=== PATIENT | male | born 1950 | race Caucasian/White ===

== ENCOUNTER 2020-06-25 07:00 | Day surgery (SDC) | payer OTHER ==
[~2020-06-25] VITALS: Ht 172.7 cm; Wt 74.8 kg
[~2020-06-25 07:00] MED LIST: ASPIRIN EC81 M1 PO; EZETIMIBE10 MG PO; HYDROXYCHLOROQ200 M1 PO; MULTIVITAMIN PACKET PO; OMEGA 3-6-9 11200 M1 PO; ZOCOR 10 MG TAB10 M1 PO
[2020-06-25 08:16] VITALS: BP 110/58
--- NOTE | 2020-06-29 06:05 | O ---
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 PROCEDURE: Left transconjunctival orbitotomy. SURGEON: Benjie Sanchez MD [employer] OPERATIONS: None. ANESTHESIA: General. COMPLICATIONS: None. INDICATIONS FOR SURGERY: This pleasant 69-year-old gentleman has a mass in his superior temporal orbit presenting sufficiently in size to induce a mechanical ectropion of his upper lid. This causes him to have chronic tearing and discharge from the eye in addition to irritation. He presents today for debulking of this lesion, which is presumed to be benign with correction of his lid globe anatomy to a normal position. Informed consent was obtained to include but not limited to the potential risk for loss of vision, bleeding, infection, and the potential need for further surgery or treatment. DESCRIPTION OF PROCEDURE: The patient was taken to the operating room where general anesthesia was administered. The left orbit was then anesthetized with Xylocaine with epinephrine mixed with Marcaine and Wydase. An additional seventh nerve block was then administered laterally. The patient was then subsequently prepped and draped in the usual sterile fashion, placing a moist sponge subsequently on the right eye. The left upper lid was distracted, which exposed the superior temporal quadrant of the globe. The conjunctiva was then elevated and incised in a radial fashion with a Skip scissor and the dissection carried down on to Tenon's capsule. Tenon's was then elevated and [facility] [address] [place] [address] OPERATIVE REPORT Name: DELILAH MANCIA Room #: DEP [facility] [place] M.R.#: [id number] Admission: 06/25/20 Attend Phys: Benjie Sanchez MD Discharge: 06/25/20 Date of : 48 Report #: [id number] additionally incised in a radial fashion drawn down on to the capsule of the mass. The capsule of the mass was then incised, which exposed the lesion itself. The lesion was then delivered through those three separate layers as it was dissected free from the underlying lateral rectus muscle with a cotton-tipped applicator. The lesion was then clamped at its base with a Skip scissor after the site was injected again with the same anesthetic mixture used at the beginning of the case. The lesion was then amputated at its base behind the equator utilizing a high-temp cautery. That stump was grasped as the hemostat was released. Hemostasis was achieved with diligent cautery. The stump was then allowed to retract post-equatorially. The conjunctiva was then closed with interrupted 6-0 plain gut sutures. The wounds were then cleaned and dressed with erythromycin ophthalmic ointment. The patient was subsequently transported to the recovery area having tolerated the procedure well with no anesthetic or operative complications being noted. MD TOMAS Wall/CARMELA/LY <ELECTRONICALLY SIGNED> By: Benjie Sanchez MD 06/29/20 0605 [id number] [id number] Benjie Sanchez MD /nt
--- NOTE | 2020-06-30 09:37 | PATH ---
[facility] [address] [place] [address] PATHOLOGY RPT PROCEDURE Name: DELILAH SCHULTZ Room #: DEP [facility] [place] M.R.#: [id number] Admission: 06/25/20 Date of : 48 Discharge: 06/25/20 Report #: [id number] Path Case #: [id number] [facility] Accession Number: [id number] . 01 Material submitted: . orbit - PRESUMED LEFT ORBITAL DERMOID. Modifiers: left . 01 Clinical history: . ORBITOTOMY LIPODERMOID . 02 Diagnosis: Presumed left orbital dermoid, orbitotomy: - Mature adipose tissue compatible with a lipoma, clinically lipodermoid. 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 02 Electronically signed: . Riya Fox MD, Pathologist NPI- [id number] . 01 Gross description: . Received in formalin labeled "Delilah Schultz and presumed left orbital dermoid". Received is lobulated yellow adipose tissue measuring 1.0 x 0.7 x 0.3 cm. Specimen is inked black. Sectioning reveals glistening yellow adipose cut surfaces and no other grossly apparent lesions. Specimen is entirely submitted in cassette A1.([facility]; 06/25/2020) [facility] 06/26/2020 1720 Local . 02 Pathologist provided ICD-10: D17.39 . 02 CPT . 831789 Specimen Comment: A courtesy copy of this report has been sent to [phone], [phone] Specimen Comment: [phone] Specimen Comment: Report sent to / DR MOYA Specimen Comment: A duplicate report has been generated due to demographic updates. Performed at: 01 [facility] [address] [id number] MD Jimmy Oliver MD Phone: [phone] Performed at: [address] [id number] [address] [address] PATHOLOGY RPT PROCEDURE Name: DELILAH SCHULTZ Room #: DEP [facility] Allyson.Alena#: [id number] Admission: 06/25/20 Date of : 48 Discharge: 06/25/20 Report #: [id number] Path Case #: [id number] MD Riya Fox MD Phone: [phone]
== END 2020-06-25 11:00 | disposition home or self-care (01) ==
LOC: OR 07:00 → TBA 07:08 → OR 09:04
PROVIDERS: ATTEND Ophthalmology
DX: D17.39 Benign lipomatous neoplasm of skin and subcutaneous tissue of other sites (principal); H02.106 Unspecified ectropion of left eye, unspecified eyelid; H04.202 Unspecified epiphora, left side; H18.9 Unspecified disorder of cornea; Z98.890 Other specified postprocedural states; Z79.899 Other long term (current) drug therapy; Z79.82 Long term (current) use of aspirin; Z20.822 Contact with and (suspected) exposure to COVID-19; Z98.52 Vasectomy status
CPT/HCPCS: 50010; 50101; 50386; 50398; 51636; 56531; 62110; 62900; 70005